=== PATIENT | female | born 1990 | race African-American/Black ===

== ENCOUNTER 2016-12-02 05:14 | Emergency (ER) | payer OTHER ==
[~2016-12-02] VITALS: Ht 167.6 cm; Wt 63.5 kg
[2016-12-02] MEDS ORDERED: Haloperidol 5mg/ml Inj IM ONE (05:30)
[2016-12-02] MEDS ORDERED: LORazepam Inj 2mg/ml 1ml IM ONE (05:30)
--- NOTE | 2016-12-02 05:31 | Emergency Room Report ---
History of Present Illness General Chief Complaint: Behavioral Complaint Source: EMS (Dwayne Silvestre M.D.) Present Illness HPI 26-year-old female unknown past medical history brought in by EMS for self harm. EMS states that patient talked to her friend, endorsed SI,/cutting herself, her friend called 911 and EMS and police arrive to patient's work. Patient was found with cuts to both wrists, with active bleeding. Patient not necessarily endorsing SI or HI, however screaming "I know my rights " Patient verbally hostile towards police, EMS, and ED staff. Patient was given bed manning, through bedpan full of urine onto the floor. Patient is not cooperating with history and physical (Dwayne Silvestre M.D.) Allergies: Coded Allergies: No Known Allergies (Unverified , 12/02/16) Patient History Past Medical History: see triage record Past Surgical History: none Pertinent Family History: none Reviewed Nursing Documentation: PMH: Agreed, PSxH: Agreed (Dwayne Silvestre M.D. ) Nursing Documentation-PMH History Of Psychiatric Problem: Yes (Dwayne Silvestre M.D.) Review of Systems All Other Systems: negative except mentioned in HPI (Dwayne Silvestre M.D.) Physical Exam Sp02 EP Interpretation: reviewed, normal General Appearance: alert, GCS 15, non-toxic, other - Young female, angry- appearing, yelling, hostile, thrashing around Head: normocephalic, atraumatic Eyes: bilateral eye normal inspection, bilateral eye PERRL, bilateral eye EOMI ENT: normal ENT inspection, normal pharynx, normal voice, moist mucus membranes Neck: normal inspection, full range of motion, supple Respiratory: normal inspection, lungs clear, normal breath sounds, no respiratory distress, no retraction, no wheezing, speaking full sentences, chest symmetrical Cardiovascular #1: normal inspection, regular rate, rhythm, no edema, normal capillary refill Cardiovascular #2: 2+ radial (R), 2+ radial (L) Gastrointestinal: normal inspection, non tender, soft, non-distended, no guarding Musculoskeletal: back normal, normal range of motion, other - Bilateral open cuts on both wrists, minimal active bleeding Neurologic: normal inspection, alert, oriented x3, responsive, motor strength/ tone normal, sensory intact, normal gait, speech normal Psychiatric: normal inspection, other - Anxious/angry Skin: normal inspection, normal color, no rash, warm/dry, well hydrated, normal turgor (Dwayne Silvestre M.D.) Medical Decision Making Diagnostic Impression: Primary Impression: Self-destructive behavior Additional Impressions: Laceration Abrasion ER Course 26-year-old female, endorse SI to friend, brought by EMS DDX: psych/tox Plan: Obtain labs, ua, alcohol, tox Psych consult ER course: Patient on restraints however thrashing around, yelling and hostile toward staff , through bed manning full of urine and spilled it on the floor intentionally, haldol/ativan given Patient's parents came to emergency room, states that patient has a history of depression, however does not have a history of suicidal attempts. States that patient likely uses drugs. No psych hospitalizations Psychiatry made aware of pt Disposition: Signed out patient to Dr Mcpherson 26-year-old female with depression Endorse SI Cuts to bilateral wrists Pending remaining labs Psych eval (Dr Graham contacted) Please note that this Emergency Department Report was dictated using [employer] talent management technology software, occasionally this can lead to erroneous entry secondary to interpretation by the dictation equipment. (Dwayne Silvestre M.D.) ER Course patient was pending psychiatric evaluation. She has been seen, evaluated and is cleared by psychiatric specialty. Requesting trazadone Rx to be written by Dr. Graham please refer to her note for the full specifics, however, patient had a thorough evaluation with aftercare and out patient care discussed as well. On a brief evaluation, patient does have a superficial laceration over the left wrist area. This was cleaned and steristrip was applied to aide in secondary healing. Labs Test 12/02/16 05:55 12/02/16 06:20 White Blood Count 6.1 K/UL (4.8-10.8) Red Blood Count 4.60 M/UL (4.20-5.40) Hemoglobin 14.1 G/DL (12.0-16.0) Hematocrit 43.2 % (37.0-47.0) Mean Corpuscular Volume 94 FL (80-99) Mean Corpuscular Hemoglobin 30.7 PG (27.0-31.0) Mean Corpuscular Hemoglobin Concent 32.6 G/DL (32.0-36.0) Red Cell Distribution Width 11.1 % (11.6-14.8) Platelet Count 266 K/UL (150-450) Mean Platelet Volume 6.9 FL (6.5-10.1) Neutrophils (%) (Auto) 73.4 % (45.0-75.0) Lymphocytes (%) (Auto) 21.6 % (20.0-45.0) Monocytes (%) (Auto) 3.9 % (1.0-10.0) Eosinophils (%) (Auto) 0.3 % (0.0-3.0) Basophils (%) (Auto) 0.9 % (0.0-2.0) Sodium Level 141 mEQ/L (135-145) Potassium Level 3.5 mEQ/L (3.4-4.9) Chloride Level 103 mEQ/L (98-107) Carbon Dioxide Level 19 mEQ/L (20-30) Anion Gap 19 (5-15) Blood Urea Nitrogen 4 mg/dL (7-23) Creatinine 0.6 mg/dL (0.5-0.9) Estimat Glomerular Filtration Rate > 60 mL/min (>60) Glucose Level 102 mg/dL (74-106) Calcium Level 8.9 mg/dL (8.6-10.2) Total Bilirubin 0.3 mg/dL (0.0-1.2) Aspartate Amino Transf (AST/SGOT) 22 U/L (5-40) Alanine Aminotransferase (ALT/SGPT) 14 U/L (3-33) Alkaline Phosphatase 65 U/L (35-104) Total Protein 7.4 g/dL (6.6-8.7) Albumin 4.2 g/dL (3.5-5.2) Globulin 3.2 g/dL Albumin/Globulin Ratio 1.3 (1.0-2.7) Salicylates Level < 1 mg/dL (10-30) Acetaminophen Level < 10 ug/mL (10-30) Serum Alcohol 168 mg/dL Urine HCG, Qualitative Negative Urine Opiates Screen Negative (NEGATIVE) Urine Barbiturates Screen Negative (NEGATIVE) Phencyclidine (PCP) Screen Negative (NEGATIVE) Urine Amphetamines Screen Negative (NEGATIVE) Urine Benzodiazepines Screen Negative (NEGATIVE) Urine Cocaine Screen Negative (NEGATIVE) Urine Marijuana (THC) Screen Positive (NEGATIVE) (JAMEHDOR,ALI D.O.) Status: improved (CHARLEY MCPHERSON D.O.) Disposition: HOME, SELF-CARE Condition: Improved Scripts Cephalexin* (KEFLEX*) 500 Mg Capsule 500 MG ORAL Q6H, #28 CAP 0 Refills Prov: CHARLEY MCPHERSON D.O. 12/02/16 Trazodone Hcl* (DESYREL*) 50 Mg Tablet 50 MG ORAL BEDTIME for 15 Days, TAB Prov: CHARLEY MCPHERSON D.O. 12/02/16 Additional Instructions: follow up as discussed with Dr. Graham, return to ER with any concerns or worsening symptoms. Dwayne Silvestre M.D. Dec 02, 2016 05:30 CHARLEY MCPHERSON D.O. Dec 03, 2016 08:16
[2016-12-02 06:02] LABS: BASOPHILS % (AUTO) 0.9 % (0.0-2.0); EOSINOPHILS % (AUTO) 0.3 % (0.0-3.0); LYMPHOCYTES % (AUTO) 21.6 % (20.0-45.0); MEAN CORPUSCULAR HEMOGLOBIN 30.7 PG (27.0-31.0); MEAN CORPUSCULAR HGB CONC 32.6 G/DL (32.0-36.0); MEAN CORPUSCULAR VOLUME 94 FL (80-99); MEAN PLATELET VOLUME 6.9 FL (6.5-10.1); MONOCYTES % (AUTO) 3.9 % (1.0-10.0); NEUTROPHILS % (AUTO) 73.4 % (45.0-75.0); PLATELET COUNT 266 K/UL (150-450); RED CELL DISTRIBUTION WIDTH 11.1 % (11.6-14.8); WHITE BLOOD COUNT 6.1 K/UL (4.8-10.8)
[2016-12-02 06:16] LABS: ACETAMINOPHEN < 10 ug/mL (10-30); ALANINE AMINOTRANSFERASE 14 U/L (3-33); ALBUMIN/GLOBULIN RATIO 1.3 (1.0-2.7); ALCOHOL 168 mg/dL; ANION GAP 19 (5-15); ASPARTATE AMINO TRANSFERASE 22 U/L (5-40); CALCIUM 8.9 mg/dL (8.6-10.2); CARBON DIOXIDE 19 mEQ/L (20-30); CHLORIDE 103 mEQ/L (98-107); CREATININE 0.6 mg/dL (0.5-0.9); GLOMERULAR FILTRATION RATE > 60 mL/min (>60); HEMOLYSIS 8; POTASSIUM 3.5 mEQ/L (3.4-4.9); SODIUM 141 mEQ/L (135-145); TOTAL PROTEIN 7.4 g/dL (6.6-8.7)
[2016-12-02 10:16] VITALS: BP 91/52
--- NOTE | 2016-12-02 11:10 | Consultation ---
History of Present Illness General Chief Complaint: Behavioral Complaint Present Illness HPI 26 yo female with hx of mdd and anxiety. the pt recently had "though time in life." the pt had a break up two months ago, financial issues and poor support system. the pt stated that she cut her wrist with knife and 911 was called. the pt stated that she didnt want to come to er the lapd put her in handcuffs and the staff in er didnt treat her well. they left her in a dark room and were rude to her. the pt stated that she feels better. father and father s girl friend want to take her home. the pt stated that she doesn't believe nor trust psychiatric treatment. she was reluctant to meds and referral father stated that hell encourage her to get help. the pt is not endorsing si/hi/ Allergies: Coded Allergies: No Known Allergies (Unverified , 12/02/16) Medication History Scheduled Cephalexin* (Keflex*), 500 MG ORAL Q6H Trazodone Hcl* (Desyrel*), 50 MG ORAL BEDTIME Patient History History Provided By: Patient, Family Member, Medical Record, PMD Healthcare decision maker Resuscitation status Advanced Directive on File Past Medical/Surgical History Past Medical/Surgical History: (1) Abrasion (2) Laceration (3) Self-destructive behavior Review of Systems Psychiatric: Reports: prior hx, depressed feelings, emotional problems Physical Exam General Appearance: no apparent distress, alert, overweight Neurologic: alert, oriented x 3, responsive, depressed affect Last 24 Hour Vital Signs Date Time Temp Pulse Resp B/P (MAP) Pulse Ox O2 Delivery O2 Flow Rate FiO2 12/02/16 10:16 79 91/52 Laboratory Tests Test 12/02/16 05:55 12/02/16 06:20 White Blood Count 6.1 K/UL (4.8-10.8) Red Blood Count 4.60 M/UL (4.20-5.40) Hemoglobin 14.1 G/DL (12.0-16.0) Hematocrit 43.2 % (37.0-47.0) Mean Corpuscular Volume 94 FL (80-99) Mean Corpuscular Hemoglobin 30.7 PG (27.0-31.0) Mean Corpuscular Hemoglobin Concent 32.6 G/DL (32.0-36.0) Red Cell Distribution Width 11.1 % (11.6-14.8) L Platelet Count 266 K/UL (150-450) Mean Platelet Volume 6.9 FL (6.5-10.1) Neutrophils (%) (Auto) 73.4 % (45.0-75.0) Lymphocytes (%) (Auto) 21.6 % (20.0-45.0) Monocytes (%) (Auto) 3.9 % (1.0-10.0) Eosinophils (%) (Auto) 0.3 % (0.0-3.0) Basophils (%) (Auto) 0.9 % (0.0-2.0) Sodium Level 141 mEQ/L (135-145) Potassium Level 3.5 mEQ/L (3.4-4.9) Chloride Level 103 mEQ/L (98-107) Carbon Dioxide Level 19 mEQ/L (20-30) L Anion Gap 19 (5-15) H Blood Urea Nitrogen 4 mg/dL (7-23) L Creatinine 0.6 mg/dL (0.5-0.9) Estimat Glomerular Filtration Rate > 60 mL/min (>60) Glucose Level 102 mg/dL (74-106) Calcium Level 8.9 mg/dL (8.6-10.2) Total Bilirubin 0.3 mg/dL (0.0-1.2) Aspartate Amino Transf (AST/SGOT) 22 U/L (5-40) Alanine Aminotransferase (ALT/SGPT) 14 U/L (3-33) Alkaline Phosphatase 65 U/L (35-104) Total Protein 7.4 g/dL (6.6-8.7) Albumin 4.2 g/dL (3.5-5.2) Globulin 3.2 g/dL Albumin/Globulin Ratio 1.3 (1.0-2.7) Salicylates Level < 1 mg/dL (10-30) L Acetaminophen Level < 10 ug/mL (10-30) L Serum Alcohol 168 mg/dL Urine HCG, Qualitative Negative Urine Opiates Screen Negative (NEGATIVE) Urine Barbiturates Screen Negative (NEGATIVE) Phencyclidine (PCP) Screen Negative (NEGATIVE) Urine Amphetamines Screen Negative (NEGATIVE) Urine Benzodiazepines Screen Negative (NEGATIVE) Urine Cocaine Screen Negative (NEGATIVE) Urine Marijuana (THC) Screen Positive (NEGATIVE) H Height (Feet): 5 Height (Inches): 6.00 Weight (Pounds): 140 Assessment/Plan Status: stable, progressing Assessment/Plan MDD. MJ use -trazodone 50mg 15 tabs -psych referral -not meeting the criteria for Evelyn Yepez M.D. Dec 02, 2016 11:10
[2016-12-02] MEDS ORDERED: Bacitracin Oint UD TOPIC ONE ×2 (11:22→11:30)
[2016-12-02] MEDS ORDERED: TRAZODONE HCL50 MG ORAL (12:00)
[2016-12-02] MEDS ORDERED: KEFLEX500 MG ORAL (12:00)
[2016-12-02 12:13] VITALS: BP 125/78
[2016-12-02 12:17] VITALS: BP 125/78
== END 2016-12-02 12:17 | disposition home or self-care (01) ==
LOC: EDBD 05:14 → EMR 05:38
DX: Z72.89 Other problems related to lifestyle (principal); S61.512A Laceration without foreign body of left wrist, initial encounter; S61.511A Laceration without foreign body of right wrist, initial encounter; X99.1XXA Assault by knife, initial encounter; Y92.009 Unspecified place in unspecified non-institutional (private) residence as the place of occurrence of the external cause
CPT/HCPCS: 36415; 80053; 80300; 81025; 85025; 96372; 99284; G0480; J1630; 80329